=== PATIENT | male | born 1950 ===

== ENCOUNTER 2021-06-10 13:48 | Outpatient (CLI) | payer MEDICARE ==
[2021-06-11 11:04] LABS: SARS-CoV-2 PCR by NAA Not Detected (NotDetected)
== END 2021-06-10 13:49 | disposition home or self-care (01) ==
LOC: CSHLAB 13:48
PROVIDERS: ATTEND Surgery
DX: Z20.822 Contact with and (suspected) exposure to COVID-19 (principal)
CPT/HCPCS: U0003; U0005

== ENCOUNTER 2021-06-13 09:36 | Day surgery (SDC) | payer MEDICARE ==
[2021-06-11 10:52] VITALS: BMI 26.6
[2021-06-13] MEDS ORDERED: Lidocaine 1% MPF 2 ML VIAL ONE (10:53)
[2021-06-13 11:43] LABS: ALT (SGPT) 55 U/L (8-55); AST (SGOT) 51 U/L (5-34); Albumin 4.2 g/dL (3.4-4.8); Alkaline Phosphatase 1342 U/L (40-110); Anion Gap 11 mmol/L (10-20); BUN (Urea Nitrogen) 14 mg/dL (8.4-25.7); Bilirubin, Total 0.9 mg/dL (0.2-1.2); Calc. Creatinine Clearance 81 mL/min (70-130); Calcium 8.8 mg/dL (7.8-10.44); Carbon Dioxide 27 mmol/L (23-31); Chloride 107 mmol/L (98-107); Globulin 3.1 g/dL (2.4-3.5); Glucose 115 mg/dL (83-110); Potassium 4.1 mmol/L (3.5-5.1); Protein, Total 7.3 g/dL (5.8-8.1); Sodium 141 mmol/L (136-145)
[2021-06-13] MEDS ORDERED: PROPOFOL 20 ML ONE ×3 (13:35→13:37)
== END 2021-06-13 15:10 | disposition home or self-care (01) ==
LOC: CSHSDC 09:36
PROVIDERS: ATTEND Surgery
PROC: 0DBP8ZZ Excision of Rectum, Via Natural or Artificial Opening Endoscopic (ICD-10-PCS; principal; 2021-06-13)
DX: C61 Malignant neoplasm of prostate (principal); K62.4 Stenosis of anus and rectum; E78.00 Pure hypercholesterolemia, unspecified; I10 Essential (primary) hypertension; Z90.49 Acquired absence of other specified parts of digestive tract; Z79.899 Other long term (current) drug therapy; K43.2 Incisional hernia without obstruction or gangrene; Z87.891 Personal history of nicotine dependence
CPT/HCPCS: 36415; 80053; 88305; J2704